=== PATIENT | female | born 2000 | race Caucasian/White ===

== ENCOUNTER 2021-05-03 09:26 | Observation (INO) | payer MEDICAID ==
[2021-05-03 10:03] VITALS: BP 128/78; PULSE 102
== END 2021-05-03 11:15 | disposition home or self-care (01) ==
LOC: MED SURG 09:26 → UNDOADMOB 09:26 → UNDODISOB 11:15
PROVIDERS: ADMIT Obstetrics & Gynecology; ATTEND Obstetrics & Gynecology
DX: Z34.83 Encounter for supervision of other normal pregnancy, third trimester (principal); Z3A.36 36 weeks gestation of pregnancy; Z20.828 Contact with and (suspected) exposure to other viral communicable diseases
CPT/HCPCS: 59025; G0378

== ENCOUNTER 2021-05-16 11:04 | Observation (INO) | payer MEDICAID ==
--- NOTE | 2021-05-16 12:04 | XRAY ---
Indication: growth. Two-dimensional OB ultrasound performed. Comparison: April 06, 2021. Again single intrauterine in cephalic presentation. heart rate 127 BPM. Again predominantly posterior placenta without abruption/previa. BPD measures 9.30 cm corresponding to 37 weeks 6 days. HC measures 32.81 cm corresponding to 37 weeks 2 days. AC measures 34.21 cm corresponding to 38 weeks 1 day. FL measures 7.49 cm corresponding to 38 weeks 2 days. Estimated weight 7 lbs. 7 oz., +/-1 pound 2 ounces. Approximately 63 percentile. ANNEMARIE is 10.3 cm. Impression: Again single viable intrauterine with mean gestational age 37 weeks 6 days. Normal progression of . No new/acute findings.
[2021-05-16 12:30] VITALS: BP 138/78; PULSE 92; O2SAT 98
== END 2021-05-16 12:30 | disposition home or self-care (01) ==
LOC: MED SURG 11:04
PROVIDERS: ADMIT Obstetrics & Gynecology; ATTEND Obstetrics & Gynecology
DX: Z34.83 Encounter for supervision of other normal pregnancy, third trimester (principal); Z3A.38 38 weeks gestation of pregnancy
CPT/HCPCS: 59025; 76816; G0378

== ENCOUNTER 2021-05-23 04:44 | Inpatient (IN) | payer MEDICAID ==
[~2021-05-23 04:44] MED LIST: PITOCIN 30 UNITS/ LR 500 ML 500 ML IV ONE
[2021-05-23 05:30] LABS: Basophil (Absolute #) 0.02 (0-0.4); Eosinophil % 3.4 % (0.00-5.0); Hematocrit 35.4 % (35-47); Hemoglobin 11.5 gm/dl (12.0-16.0); Lymphocyte (Absolute #) 3.22 (1.0-4.6); Lymphocytes % 27.1 % (24.0-44.0); Mean Cell Volume 89.2 fl (78-100); Mean Corpuscular Hgb Concent. 32.5 g/dl (32-36); Mean Platelet Volume 10.4 fl (7.5-11.0); Monocyte (Absolute #) 0.76 (0.0-1.3); Monocytes % 6.4 % (0.0-12.0); Neutrophil % 62.9 % (36.0-66.0); Platelet Count 304 K/mm3 (150-450); Red Blood Count 3.97 M/mm3 (4.1-5.4); Red Cell Distribution Width 13.2 % (11.5-14.0); White Blood Count 11.9 K/mm3 (4.0-10.5)
[2021-05-23 05:33] LABS: Appearance CLEAR (CLEAR); Bacteria RARE /HPF (NEGATIVE); Bilirubin NEGATIVE (NEGATIVE); Blood NEGATIVE Ery/ul (0-5); Epithelial Cells RARE /HPF (FEW); Glucose NEGATIVE (NEGATIVE); Ketones TRACE (NEGATIVE); Leukocyte Esterase NEGATIVE (NEGATIVE); Mucus SLIGHT /HPF (NEGATIVE); Nitrite NEGATIVE (NEGATIVE); Protein,Urine Dip NEGATIVE (Negative); Specific Gravity 1.012 (1.005-1.025); Urobilinogen NEGATIVE mg/dL (0-1); WBC 0-2 /HPF (0-5)
[2021-05-23 05:59] LABS: Amphetamine,Urine NEGATIVE (NEGATIVE); Barbiturate,Urine NEGATIVE (NEGATIVE); Benzodiazepine,Urine NEGATIVE (NEGATIVE); Cocaine,Urine NEGATIVE (NEGATIVE); Methadone,Urine NEGATIVE (NEGATIVE); Opiate,Urine NEGATIVE (NEGATIVE); PCP,Urine NEGATIVE (NEGATIVE); THC,Urine NEGATIVE (NEGATIVE)
[2021-05-23] MEDS ORDERED: Lactated Ringers 1,000 ML IV ONE (06:00)
[2021-05-23] MEDS ORDERED: Ephedrine Sulfate 50 MG/ML IV PRN (07:00)
[2021-05-23] MEDS ORDERED: BRETHINE 1 MG/ML SQ PRN (07:00)
[2021-05-23] MEDS ORDERED: Lactated Ringers 1,000 ML IV SCH (07:00)
[2021-05-23] MEDS ORDERED: PITOCIN 30 UNITS/ LR 500 ML 30 UNITS/500 ML PLAST..BAG IV SCH ×2 (07:00→10:00)
[2021-05-23] MEDS ORDERED: Zofran 4 MG/2 ML VIAL IV PRN (07:00)
[2021-05-23] MEDS ORDERED: FENTANYL 2 MCG-BUPIV 0.125%-NS 250 ML Epidur 250 ML EPIDURAL SCH (07:00)
[2021-05-23] MEDS ORDERED: Dermoplast Spray TP PRN (10:00)
[2021-05-23] MEDS ORDERED: Anucort-HC SUPPOSITORY PR PRN (10:00)
[2021-05-23] MEDS ORDERED: Mylicon 80MG PO PRN (10:00)
[2021-05-23] MEDS ORDERED: TUCKS TP PRN (10:00)
[2021-05-23] MEDS ORDERED: CORTISONE 1% CREAM TP PRN (10:00)
[2021-05-23] MEDS ORDERED: Dulcolax 10 MG SUPP PR PRN (10:00)
[2021-05-23] MEDS ORDERED: XYLOCAINE 1% HCL 20 ML MDV IJ PRN (10:00)
[2021-05-23] MEDS ORDERED: LANSINOH 40 GM TOP PRN (10:00)
[2021-05-23 10:15] VITALS: O2SAT 99
[2021-05-23] MEDS: TYLENOL EXTRA STRENGTH 500 MG PO PRN (22:19)
[2021-05-23] MEDS: FERREX 150 PO SCH (22:19)
[2021-05-23] MEDS: Colace 100 MG PO SCH (22:19)
[2021-05-24] MEDS: TYLENOL EXTRA STRENGTH 500 MG PO PRN ×2 (05:07→09:10)
[2021-05-24 05:15] LABS: Absolute Neutrophil Ct (ANC) 7.63 (1.4-6.9); Basophil (Absolute #) 0.03 (0-0.4); Eosinophil % 1.9 % (0.00-5.0); Eosinophil (Absolute #) 0.21 (0-0.5); Hematocrit 32.8 % (35-47); Hemoglobin 10.6 gm/dl (12.0-16.0); Lymphocyte (Absolute #) 2.56 (1.0-4.6); Mean Cell Volume 89.4 fl (78-100); Mean Corpuscular Hemoglobin 28.9 pg (26-32); Mean Corpuscular Hgb Concent. 32.3 g/dl (32-36); Mean Platelet Volume 10.1 fl (7.5-11.0); Monocyte (Absolute #) 0.72 (0.0-1.3); Monocytes % 6.5 % (0.0-12.0); Neutrophil % 68.3 % (36.0-66.0); Platelet Count 242 K/mm3 (150-450); Red Blood Count 3.67 M/mm3 (4.1-5.4); Red Cell Distribution Width 13.3 % (11.5-14.0); White Blood Count 11.2 K/mm3 (4.0-10.5)
--- NOTE | 2021-05-24 07:49 | PCM.NOTE ---
Date and Time: 05/24/21747 Subjective Assessment: ppd 1 pt resting in bed and doing well vss afebrile abd; soft uterus; firm lochia; mild hgb; 10 a/p sp ppd 1 dc home tomorrow fu office 3 wks OBJECTIVE DATA Vital Signs: Vital Signs - 24 hr Temp Pulse Resp BP BP Pulse Ox 05/24/21 05:11 97.8 F 67 18 109/58 05/24/21 00:46 98.8 F 69 18 120/67 05/23/21 19:43 97.1 F 62 18 116/66 05/23/21 18:00 73 16 115/58 05/23/21 13:15 83 20 112/69 05/23/21 12:05 76 20 116/51 05/23/21 12:00 76 20 116/59 05/23/21 11:57 105 H 20 110/57 05/23/21 11:35 90 20 114/58 05/23/21 11:00 92 H 20 120/72 05/23/21 10:45 105 H 20 05/23/21 10:30 83 18 119/71 05/23/21 10:15 73 16 102/55 05/23/21 10:00 75 16 110/66 99 05/23/21 09:45 99 H 16 110/66 99 05/23/21 09:30 89 20 114/67 97 05/23/21 09:15 89 20 109/63 97 05/23/21 09:00 85 20 103/65 97 05/23/21 08:45 95 H 20 103/65 97 05/23/21 08:30 84 20 105/56 97 05/23/21 08:15 82 20 113/59 98 05/23/21 08:00 82 20 120/69 120/96 98 Pain Assessment - Last Documented Pain Intensity [Anterior] 8 Pain Intensity 3 Pain Scale Used 0-10 Pain Scale Intake and Output: Intake & Output 05/21/21 05/22/21 05/23/21 05/24/21 11:59 11:59 11:59 11:59 Intake Total 2700 600 Output Total 600 Balance 2100 600 Weight 73.936 kg Lab Results: Lab Results-Last 24 Hours 05/24/21 Range/Units 05:05 WBC 11.2 H (4.0-10.5) K/mm3 RBC 3.67 L (4.1-5.4) M/mm3 Hgb 10.6 L (12.0-16.0) gm/dl Hct 32.8 L (35-47) % MCV 89.4 (78-100) fl MCH 28.9 (26-32) pg MCHC 32.3 (32-36) g/dl RDW 13.3 (11.5-14.0) % Plt Count 242 (150-450) K/mm3 MPV 10.1 (7.5-11.0) fl Gran % 68.3 H (36.0-66.0) % Eos # (Auto) 0.21 (0-0.5) Absolute Lymphs (auto) 2.56 (1.0-4.6) Absolute Monos (auto) 0.72 (0.0-1.3) Lymphocytes % 23.0 L (24.0-44.0) % Monocytes % 6.5 (0.0-12.0) % Eosinophils % 1.9 (0.00-5.0) % Basophils % 0.3 (0.0-0.4) % Absolute Granulocytes 7.63 H (1.4-6.9) Basophils # 0.03 (0-0.4) Assessment/Plan (1) Vaginal delivery Current Visit: Yes Status: Acute Code(s): O80 - ENCOUNTER FOR FULL-TERM UNCOMPLICATED DELIVERY
--- NOTE | 2021-05-24 07:52 | PCM.DS ---
Discharge Summary Date of Admission: 05/23/21 07:51 Admitting Physician: KEILY MCNALLY DO Consults: Consults on Case 05/23/21 08:00 Notify Anesthesia Provider PRN Notify Physician ROUTINE 05/23/21 16:55 Navigation ONCE Primary Care Provider: JESSICA WAGNER ALBARO Allergies Allergies No Known Drug Allergies Allergy (Verified 05/23/21 04:59) Hospital Summary - Hospital Course Hospital Course: pt was admitted on may 23 for pitocin induction at 39 wks gestation and subsequently delivered live baby girl via without complication. during period did well with stable hgb at 10 and at this time stable for discharge on may 25. all questions answered to her satisfaction and was advised to fu in office in 3 wks for care. - Vitals & Intake/Output Vital Signs: Vital Signs Temperature 97.8 F 05/24/21 05:11 Pulse Rate 67 05/24/21 05:11 Respiratory Rate 18 05/24/21 05:11 Blood Pressure 109/58 05/24/21 05:11 O2 Sat by Pulse Oximetry 99 05/23/21 10:00 Intake & Output: Intake & Output 05/21/21 05/22/21 05/23/21 05/24/21 11:59 11:59 11:59 11:59 Intake Total 2700 600 Output Total 600 Balance 2100 600 Weight 73.936 kg - Lab Result Diagrams: 05/24/21 05:05 Lab Results-Last 24 Hrs: Lab Results-Last 24 Hours 05/24/21 Range/Units 05:05 WBC 11.2 H (4.0-10.5) K/mm3 RBC 3.67 L (4.1-5.4) M/mm3 Hgb 10.6 L (12.0-16.0) gm/dl Hct 32.8 L (35-47) % MCV 89.4 (78-100) fl MCH 28.9 (26-32) pg MCHC 32.3 (32-36) g/dl RDW 13.3 (11.5-14.0) % Plt Count 242 (150-450) K/mm3 MPV 10.1 (7.5-11.0) fl Gran % 68.3 H (36.0-66.0) % Eos # (Auto) 0.21 (0-0.5) Absolute Lymphs (auto) 2.56 (1.0-4.6) Absolute Monos (auto) 0.72 (0.0-1.3) Lymphocytes % 23.0 L (24.0-44.0) % Monocytes % 6.5 (0.0-12.0) % Eosinophils % 1.9 (0.00-5.0) % Basophils % 0.3 (0.0-0.4) % Absolute Granulocytes 7.63 H (1.4-6.9) Basophils # 0.03 (0-0.4) Final Diagnosis/Problem List - Final Discharge Diagnosis/Problem (1) Vaginal delivery Current Visit: Yes Status: Acute Code(s): O80 - ENCOUNTER FOR FULL-TERM UNCOMPLICATED DELIVERY - Discharge Disposition: Home, Self-Care Condition: Stable Prescriptions: No Action Vits W-Ca,Fe,FA(<1Mg) [] 1 ea DAILY Follow up with: JESSICA WAGNER MD [Primary Care Provider] - KEILY MCNALLY DO [ACTIVE STAFF] - 3 weeks (no heavy lifting nothing per vagina for 4 wks)
[2021-05-24] MEDS: Colace 100 MG PO SCH ×2 (09:11→20:49)
[2021-05-24] MEDS: FERREX 150 PO SCH (09:11)
[2021-05-24] MEDS ORDERED: Adacel Vial IM ONE (10:00)
[2021-05-24 10:23] LABS: HBsAg Screen Negative (Negative)
[2021-05-24] MEDS: MOTRIN 400 MG PO PRN (20:49)
[2021-05-25] MEDS: MOTRIN 400 MG PO PRN (03:49)
[2021-05-25 08:39] VITALS: BP 124/73; PULSE 69
== END 2021-05-25 11:00 | disposition home or self-care (01) | DRG 807 ==
LOC: OB 04:44 → OBSVTOIN 07:51
PROVIDERS: ADMIT Obstetrics & Gynecology; ATTEND Obstetrics & Gynecology
PROC: 10E0XZZ Delivery of Products of Conception, External Approach (ICD-10-PCS; principal; 2021-05-23)
PROC: 3E033VJ Introduction of Other Hormone into Peripheral Vein, Percutaneous Approach (ICD-10-PCS; 2021-05-23)
DX: O69.0XX0 Labor and delivery complicated by prolapse of cord, not applicable or unspecified (principal); Z37.0 Single live birth; Z3A.39 39 weeks gestation of pregnancy; Z20.828 Contact with and (suspected) exposure to other viral communicable diseases
CPT/HCPCS: 36415; 80307; 81001; 85025; 87086; 87340; 90471; 90715; G0378; J2590; A9270-GY